=== PATIENT | female | born 1970 | race Caucasian/White ===

== ENCOUNTER 2019-03-14 08:35 | Emergency (ER) | payer OTHER ==
[~2019-03-14] VITALS: Ht 157.5 cm; Wt 59.0 kg
[2019-03-14 08:35] VITALS: BP_SYST 156
--- NOTE | 2019-03-14 08:40 | NUR ---
BROUGHT BACK TO BED #6 AND TRIAGED. REPORT GIVEN TO TAMIKO
--- NOTE | 2019-03-14 08:40 | NUR ---
Patient presented to ER C/O back pain. Patient A&OX4, skin pink and warm, afebrile, ambulatory to ER, pain 12/04, denies N/V/D, denies trauma. Patient states she has left side back pain below shoulder blade x4 days, patient states she is healthy & active.
--- NOTE | 2019-03-14 09:05 | NUR ---
ER Dr. Bo at bedside examining patient.
[2019-03-14] MEDS ORDERED: KETOROLAC TROMETHAMINE 60 MG/2 ML VIAL IM ONE (09:15)
[2019-03-14 10:33] VITALS: BP_SYST 152
--- NOTE | 2019-03-14 10:33 | NUR ---
Patient given written and verbal discharge instructions and verbalizes understanding. ER MD discussed with patient the results and treatment provided. Patient in stable condition. ID arm band removed. Rx of naproxen, norco, soma given. Patient educated on pain management and to follow up with PMD. Pain Scale2/10 tolerable for patient . Opportunity for questions provided and answered. Medication side effect fact sheet provided.
== END 2019-03-14 10:33 | disposition home or self-care (01) ==
LOC: SED 08:35
DX: S23.3XXA Sprain of ligaments of thoracic spine, initial encounter (principal); X58.XXXA Exposure to other specified factors, initial encounter; Y93.89 Activity, other specified; Y92.89 Other specified places as the place of occurrence of the external cause; Y99.8 Other external cause status
CPT/HCPCS: 72072; 96372; 99283; J1885